=== PATIENT | male | born 1995 | race Caucasian/White ===

== ENCOUNTER 2018-10-27 17:17 | Emergency (ER) | END 2018-10-27 20:55 | disposition home or self-care (01) ==

== ENCOUNTER 2018-11-29 11:13 | Emergency (ER) | payer OTHER ==
[~2018-11-29] VITALS: Wt 93.7 kg
[~2018-11-29 11:13] MED LIST: ALBU8.5H8 INH; PRED20TA PO
[2018-11-29 11:24] VITALS: BP 142/74; PULSE 80; RESP 18
[2018-11-29] MEDS ORDERED: predniSONE 20 MG TAB PO STA (11:57)
[2018-11-29] MEDS ORDERED: IPRATROPIUM (NEB) 0.5 MG/2.5 ML AMP NEB STA (11:57)
[2018-11-29] MEDS ORDERED: ALBUTEROL 0.083% (NEB) 2.5 MG/3 ML AMP NEB STA (11:57)
--- NOTE | 2018-11-29 11:57 | ERD ---
ER Documentation Chief Complaint Chief Complaint ASTHMA; MEDS NOT HELPING HPI 23-year-old male, with history of intermittent asthma, presents to the emergency department, complaining of 3 days with worsening of cough, wheezing and shortness of breath. The patient has been using albuterol MDI every 2 hours without improvement of the symptoms. He denies fevers or chills, no rashes, no gas or intestinal symptoms. ROS All systems reviewed and are negative except as per history of present illness. Medications Home Meds Active Scripts Prednisone* (Prednisone*) 20 Mg Tab, 60 MG PO DAILY for 4 Days, TAB Prov:BABITA LU MD 11/29/18 Azithromycin* (Zithromax*) 250 Mg Tablet, 250 MG PO .ZPACK DIRECTED, #6 TAB TAKE 500 MG (2 TABS) THE FIRST DAY THEN 250 MG (1 TAB) DAYS 2-5 Prov:BABITA UL MD 11/29/18 Albuterol Sulfate* (Ventolin HFA*) 18 Gm Hfa.aer.ad, 2 PUFF INHALATION Q4H, #1 INHALER 2 Refills Prov:BABITA LU MD 11/29/18 Albuterol Sulfate* (Proair HFA*) 8.5 Gm Hfa.aer.ad, 2 PUFF INH Q4, #1 INHALER Prov:JIMMY STANLEY PA-C 10/27/18 Prednisone* (Prednisone*) 20 Mg Tab, 40 MG PO DAILY for 4 Days, TAB Prov:JIMMY STANLEY PA-C 10/27/18 Allergies Allergies: Coded Allergies: No Known Allergy (Unverified , 11/29/18) PMhx/Soc Hx Respiratory Disorders: Yes (asthma) Hx Alcohol Use: Yes (social) Hx Substance Use: No Hx Tobacco Use: Yes Smoking Status: Never smoker Physical Exam Vitals Vital Signs Date Temp Pulse Resp B/P (MAP) Pulse Ox O2 O2 Flow FiO2 Time Delivery Rate 11/29/18 76 20 99 21 12:13 11/29/18 97.8 80 18 142/74 99 11:24 (96) Physical Exam Const: No acute distress Head: Atraumatic Eyes: Normal Conjunctiva ENT: Normal External Ears, Nose and Mouth. Neck: Full range of motion. No meningismus. Resp: Bilateral decreased respiratory sounds, with expiratory wheezing. Cardio: Regular rate and rhythm, no murmurs Abd: Soft, non tender, non distended. Normal bowel sounds Skin: No petechiae or rashes Back: No midline or flank tenderness Ext: No cyanosis, or edema Neur: Awake and alert Psych: Normal Mood and Affect Results 24 hrs Current Medications Medications Dose Sig/Hillary Start Time Status Last (Trade) Ordered Route PRN Stop Time Admin Dose Reason Admin Albuterol 5 mg ONCE STAT 11/29/18 DC 11/29/18 (Proventil NEB 11:57 12:13 0.083% (Neb)) 11/29/18 12:03 Ipratropium 0.5 mg ONCE STAT 11/29/18 DC 11/29/18 [place] NEB 11:57 12:12 (Atrovent 11/29/18 0.02% 12:03 (Neb)) Prednisone 60 mg ONCE STAT 11/29/18 DC 11/29/18 (Prednisone) PO 11:57 12:06 11/29/18 12:03 Procedures/MDM Differential diagnosis include but not limited to: Respiratory infection bacterial/viral/fungal. Asthma/COPD, pneumonitis, allergies, GERD. Less likely foreign body aspiration, cardiac related, aspiration pneumonia, malignancy. Physical examination and clinical presentation consistent most likely with acute asthma exacerbation with early superimposed bacterial infection. During the ED course the patient remained stable, received a nebulized treatment and steroids in the ED presenting overall improvement of the symptoms, no new complaints. Clinical impression discussed with the patient who agrees with management. The patient is stable to be treated outpatient and will be discharged home. Some side effects of prescribed medications (headache, rash, nausea, vomiting, diarrhea, drowsiness, habituation, bleeding, hypertension, interactions with other medications) were reviewed. The patient was instructed to follow up with the primary care provider in the next 48h. If symptoms persist, worsen or new symptoms develop, then patient should return to the ED immediately. Disclaimer: Inadvertent spelling and grammatical errors are likely due to EHR/dictation software use and do not reflect on the overall quality of patient care. Also, please note that the electronic time recorded on this note does not necessarily reflect the actual time of the patient encounter. Departure Diagnosis: Primary Impression: Asthma with acute exacerbation Condition: Stable Additional Instructions: Thank you very much for allowing us to participate in your care. Your health and safety is our top priority at [facility]. Call your primary care doctor TOMORROW for an appointment during the next 2-4 days and bring all the information and medications prescribed. Have prescriptions filled and follow precisely the directions on the label. If the symptoms get worse and your provider is unavailable, return to the Emergency Department immediately. BABITA LU MD Nov 29, 2018 11:57
[2018-11-29] MEDS ORDERED: PRED20TA PO (12:44)
[2018-11-29] MEDS ORDERED: ALBU18HF INHALATION (12:44)
[2018-11-29] MEDS ORDERED: AZIT250T PO (12:44)
== END 2018-11-29 12:55 | disposition home or self-care (01) ==
LOC: FTE 11:13
DX: J45.901 Unspecified asthma with (acute) exacerbation (principal); Z87.891 Personal history of nicotine dependence
CPT/HCPCS: 94664; J7512; Z7610

== ENCOUNTER 2019-07-08 02:50 | Emergency (ER) | payer OTHER ==
[~2019-07-08] VITALS: Ht 170.2 cm; Wt 93.4 kg
[~2019-07-08 02:50] MED LIST changes: +ALBU18HF INHALATION; +AZIT250T PO
[2019-07-08 02:55] VITALS: BP 140/93; PULSE 70; RESP 21; Ht 170.2 cm; Wt 93.4 kg
[2019-07-08] MEDS ORDERED: predniSONE 20 MG TAB PO ONE (03:30)
--- NOTE | 2019-07-08 04:16 | ERD ---
ER Documentation Chief Complaint Chief Complaint C/O SOB/ASTHMA ATTACK X30 MIN FILENET ADMIN, STATES HOME ALBUTEROL NOT HELPING HPI Patient is a 23-year-old male with asthma who presents with "problems breathing". He said it started a few days ago. He tried a nebulizer last night. He has a history of asthma and this feels like his asthma. He has no fevers and no cough. He said that the inhaler that he has is very old. Upon review of old medical records this is the patient's third visit to the ER since October 2018. He goes to a local clinic for his care. ROS All systems reviewed and are negative except as per history of present illness. Medications Home Meds Active Scripts Albuterol Sulfate* (Ventolin HFA*) 18 Gm Hfa.aer.ad, 2 PUFF INHALATION Q4H, #1 INHALER Prov:ERENDIRA ARROYO MD 07/08/19 Prednisone* (Prednisone*) 20 Mg Tab, 60 MG PO DAILY for 4 Days, TAB Prov:ERENDIRA ARROYO MD 07/08/19 Prednisone* (Prednisone*) 20 Mg Tab, 60 MG PO DAILY for 4 Days, TAB Prov:BABITA LU MD 11/29/18 Azithromycin* (Zithromax*) 250 Mg Tablet, 250 MG PO .ZPACK DIRECTED, #6 TAB TAKE 500 MG (2 TABS) THE FIRST DAY THEN 250 MG (1 TAB) DAYS 2-5 Prov:BABITA LU MD 11/29/18 Albuterol Sulfate* (Ventolin HFA*) 18 Gm Hfa.aer.ad, 2 PUFF INHALATION Q4H, #1 INHALER 2 Refills Prov:BABITA LU MD 11/29/18 Albuterol Sulfate* (Proair HFA*) 8.5 Gm Hfa.aer.ad, 2 PUFF INH Q4, #1 INHALER Prov:JIMMY STANLEY PA-C 10/27/18 Prednisone* (Prednisone*) 20 Mg Tab, 40 MG PO DAILY for 4 Days, TAB Prov:JIMMY STANLEY PA-C 10/27/18 Allergies Allergies: Coded Allergies: No Known Allergy (Unverified , 11/29/18) PMhx/Soc Medical and Surgical Hx: pt denies Surgical Hx Hx Respiratory Disorders: Yes (asthma) Hx Alcohol Use: Yes (social) Hx Substance Use: No Hx Tobacco Use: Yes Smoking Status: Current every day smoker FmHx Family History: No diabetes Physical Exam Vitals Vital Signs Date Temp Pulse Resp B/P (MAP) Pulse Ox O2 O2 Flow FiO2 Time Delivery Rate 07/08/19 98.0 70 21 140/93 99 02:55 (109) Physical Exam Const: No acute distress Head: Atraumatic Eyes: Normal Conjunctiva ENT: Normal External Ears, Nose and Mouth. Neck: Full range of motion. No meningismus. Resp: Patient is moving air bilaterally without accessory muscle use or retractions Cardio: Regular rate and rhythm, no murmurs Abd: Soft, non tender, non distended. Normal bowel sounds Skin: No petechiae or rashes Back: No midline or flank tenderness Ext: No cyanosis, or edema Neur: Awake and alert Psych: Normal Mood and Affect Results 24 hrs Current Medications Medications Dose Sig/Hillary Start Time Status Last (Trade) Ordered Route PRN Stop Time Admin Dose Reason Admin Prednisone 60 mg ONCE ONCE 07/08/19 DC 07/08/19 (Prednisone) PO 03:30 07/08/19 03:15 03:31 Procedures/MDM Patient is a 23-year-old male presents with acute asthma attack. I believe this is likely a mild attack and he does not require breathing treatment in the emergency department. His vital signs are normal here in the emergency department. I doubt pneumonia, pneumothorax, or pulmonary embolism. The patient will be given prednisone by mouth and will be given a prescription for 4 more days of prednisone and a Ventolin inhaler. The patient can follow-up with his primary doctor for reevaluation within 24 to 48 hours. Departure Diagnosis: Primary Impression: Asthma with acute exacerbation Asthma severity: unspecified severity Asthma persistence: unspecified Qualified Codes: J45.901 - Unspecified asthma with (acute) exacerbation Condition: Fair Patient Instructions: Asthma, Acute (Adult) Referrals: Your doctor Additional Instructions: Call your primary care doctor TOMORROW for an appointment during the next 1 WEEK.Tell the elementary secretary that you were referred from this facility.See the doctor sooner or return here if your condition worsens before your appointment time. ERENDIRA ARROYO MD Jul 08, 2019 04:16
== END 2019-07-08 03:40 | disposition home or self-care (01) ==
LOC: FTE 02:50
DX: J45.901 Unspecified asthma with (acute) exacerbation (principal); F17.210 Nicotine dependence, cigarettes, uncomplicated
CPT/HCPCS: J7512; Z7502; 99283

== ENCOUNTER 2019-08-10 01:37 | Emergency (ER) | payer SELFPAY ==
[~2019-08-10] VITALS: Ht 172.7 cm; Wt 85.0 kg
[2019-08-10 01:40] VITALS: BP 163/85; PULSE 74; RESP 16; Ht 172.7 cm; Wt 85.0 kg
== END 2019-08-10 02:35 | disposition left against medical advice (07) ==
LOC: E/R 01:37
DX: Z53.21 Procedure and treatment not carried out due to patient leaving prior to being seen by health care provider (principal)
CPT/HCPCS: 93005